=== PATIENT | female | born 1955 | race Caucasian/White ===

== ENCOUNTER → 2016-03-09 | Outpatient (REF) | payer BC ==
[~2016-03-09] MED LIST: ALBU8.5H2 IH; ALLP300T; AMLO5TAB4; ATOR40TA2 PO; AZIT250T81 PO; CALC-250 PO; CARV12.5 PO; CARV25TA30 PO; DOXY100T41 PO; HCT25T; HYDR-3702 PO; HYDR-3754 PO; INSU100V32 SQ; INSU300I SQ; LIRA0.6P2 SC; LISI20TA; LOSA1TAB70 PO; ONDA4TAB8 PO; ONDAN4ODT PO; PRCD5U PO; PRM25T PO/SL; [UNRECOGNIZED DRUG - CODE]
[2016-03-09 10:17] LABS: BASOPHILS % (AUTO) 1 % (0-2); EOSINOPHILS # (AUTO) 0.5 10^3uL; EOSINOPHILS % (AUTO) 6 % (0-4); LYMPHOCYTES # (AUTO) 1.4 X10^3; MEAN CORPUSCULAR HEMOGLOBIN 28.1 PG (26.0-34.0); MEAN CORPUSCULAR HGB CONC 33.8 g/dL (31.0-37.0); MEAN CORPUSCULAR VOLUME 83 FL (80-100); MEAN PLATELET VOLUME 11.8 FL (6.0-9.5); MONOCYTES # (AUTO) 0.6 X10^3; MONOCYTES % (AUTO) 7 % (3-11); NEUTROPHILS # (AUTO) 6.4 X10^3; NEUTROPHILS % (AUTO) 71 % (51-67); PLATELET COUNT 222 10^3uL (150-450); WHITE BLOOD COUNT 9.07 10^3uL (4.0-11.0)
[2016-03-09 10:18] LABS: BILIRUBIN,URINE Negative (Negative); CLARITY,URINE Cloudy; COLOR,URINE Yellow; GLUCOSE, URINE (UA) Negative (Negative); LEUKOCYTE ESTERASE ,URINE Negative (Negative); UROBILINOGEN,URINE 0.2 mg/dL (0.2-1.0)
[2016-03-09 10:34] LABS: ALBUMIN 4.2 g/dL (3.4-5.0); ANION GAP 16.9 MEQ/L (3-15); CALCULATED IONIZED CALCIUM 4.1 mg/dL (3.8-4.6); TOTAL PROTEIN 7.2 g/dL (6.4-8.5)
== END ==
LOC: LAB 09:49
PROVIDERS: ATTEND Family Medicine
DX: E11.9 Type 2 diabetes mellitus without complications (principal); E78.1 Pure hyperglyceridemia; I10 Essential (primary) hypertension; Z87.39 Personal history of other diseases of the musculoskeletal system and connective tissue; G43.109 Migraine with aura, not intractable, without status migrainosus; J45.20 Mild intermittent asthma, uncomplicated
CPT/HCPCS: 80053; 80061; 81003; 82043; 83036; 84443; 84550; 85025

== ENCOUNTER 2016-05-02 05:35 | Emergency (ER) | payer BC ==
[~2016-05-02] VITALS: Ht 157.5 cm; Wt 113.1 kg
[2016-05-02] MEDS ORDERED: KETOROLAC 60 MG/2 ML (TORADOL) VIAL IM ONE (06:10)
[2016-05-02] MEDS ORDERED: ED- HYDROcodone/ACETAMINOPHEN 5MG/325MG (NORCO) 6 TABLETS/BTL PO ONE (06:10)
[2016-05-02] MEDS: HYDROcodone/APAP 7.5 MG/325 MG (NORCO) TABLET PO ONE ×2 (06:15→06:37)
[2016-05-02] MEDS ORDERED: ONDANSETRON 4 MG (ZOFRAN) ORAL DISSOLVE TAB PO ONE (06:20)
--- NOTE | 2016-05-02 07:00 | NUR ---
LATONYA AND AQUILES TOOK OVER CARE OF PT
--- NOTE | 2016-05-02 07:29 | NUR ---
PT SLEEPING ON LT SIDE. UPON RETURN FROM XRAY PT STATES SHE IS MORE COMFORTABLE LYING ON HER LEFT HIP (PUTTING PRESSURE ON IT HELPS). HUSB AT BEDSIDE. CL
[2016-05-02] MEDS ORDERED: SODIUM CHLORIDE FLUSH 10 ML SYR IV PRN (07:45)
[2016-05-02] MEDS ORDERED: fentaNYL 100 MCG/2 ML VIAL IV ONE (07:45)
[2016-05-02] MEDS ORDERED: SODIUM CHLORIDE FLUSH 3 ML SYR IV ONE (07:45)
[2016-05-02] MEDS ORDERED: NS IV 500 ML 500 ML IV SCH (07:45)
[2016-05-02] MEDS ORDERED: PROMETHAZINE HCL INJ 12.5 MG in SODIUM CHLORIDE 25 ML IV ONE (07:45)
[2016-05-02 08:13] LABS: MEAN CORPUSCULAR HEMOGLOBIN 28.5 PG (26.0-34.0); MEAN CORPUSCULAR HGB CONC 35.2 g/dL (31.0-37.0); MEAN CORPUSCULAR VOLUME 81 FL (80-100); MEAN PLATELET VOLUME 11.1 FL (6.0-9.5); PLATELET COUNT 261 10^3uL (150-450); WHITE BLOOD COUNT 10.15 10^3uL (4.0-11.0)
[2016-05-02 08:18] LABS: BAND NEUTROPHILS % 1 % (0-6); EOSINOPHILS % 1 % (0-4); LYMPHOCYTES # 0.4 #; MONOCYTES # 0.3 #; MONOCYTES % 3 % (3-11); RBC MORPH NORMAL (NORMAL); SEGMENTED NEUTROPHILS % 91 % (51-67); TOTAL CELLS COUNTED 100
[2016-05-02 08:27] LABS: ALBUMIN 4.6 g/dL (3.4-5.0); ANION GAP 17.8 MEQ/L (3-15); CALCULATED IONIZED CALCIUM 3.9 mg/dL (3.8-4.6); TOTAL PROTEIN 8.3 g/dL (6.4-8.5)
--- NOTE | 2016-05-02 08:34 | NUR ---
PT REPEATEDLY STARTS TO FALL TO SLEEP & O2 SAT VARIABLE WITH SAME WAVEFORM WHEN O2 DROPS WHEN IT IS IN THE 90'S. PT AWAKENS WITH O2SAT ALARM & TAKES A DEEP BREATH SPONTANEOUSLY WHICH BRINGS O2 SAT UP IMMED. PT STATES "JUST WHEN I START TO GET TO SLEEP THAT MONITOR GOES OFF". PT STATES "I HAD OXYGEN LAST TIME I WAS IN THE HOSPITAL WHILE I WAS SLEEPING". PT REMAINS ON LT SIDE FOR COMFORT. HUSB AT BEDSIDE. CL
[2016-05-02 10:09] VITALS: BP 149/69
== END 2016-05-02 09:50 | disposition home or self-care (01) ==
LOC: ED 05:36
DX: M76.892 Other specified enthesopathies of left lower limb, excluding foot (principal); M25.552 Pain in left hip; R11.2 Nausea with vomiting, unspecified
CPT/HCPCS: 36415; 73502; 80053; 84443; 84550; 85025; 86140; 96365; 96372; 96375; 99284; J1885; J2550; J3010; J7040; 99283

== ENCOUNTER → 2016-06-07 | Outpatient (REF) | payer BC | LOC: LAB 09:08 | PROVIDERS: ATTEND Nurse Practitioner Family | DX: E11.9 Type 2 diabetes mellitus without complications (principal); I10 Essential (primary) hypertension | CPT/HCPCS: 83036 ==